=== PATIENT | female | born 1985 | race American Indian/Alaskan Native ===

== ENCOUNTER 2020-11-27 11:00 | Inpatient (IN) | payer OTHER, MEDICAID ==
[2020-11-27] MEDS ORDERED: D5W/LACTATED RINGERS 1,000 ML IV SCH (14:00)
[2020-11-27] MEDS ORDERED: SODIUM CHLORIDE 0.9% 1000 ML 1,000 ML IV ONE (14:30)
--- NOTE | 2020-11-27 15:15 | History and Physical Report ---
History of Present Illness Date of examination: 11/27/20 Date of admission: 11/27/20 11:12 Chief complaint: nausea and vomiting History of present illness: 35y/o @ 13+5 weeks presents for readmission secondary to hyperemesis. The patient was recently admitted and had placement of a PICC line however she had to leave [place] secondary to childcare concerns. She represents with the same complaint of nausea and vomiting. 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), D&C Social history: no significant social history - Obstetrical History Expected Date of Delivery: 05/30/21 Actual Gestation: 13 Week(s) 5 Day(s) : 8 Para: 4 Hx # Term Pregnancies: 3 Number of Pregnancies: 1 Spontaneous Abortions: 2 Induced : 1 Number of Living Children: 4 Medications and Allergies Allergies Allergy/AdvReac Type Severity Reaction Status Date / Time metoclopramide HCl Allergy Anaphylaxis Verified 08/30/15 17:51 [From [facility]] Home Medications Medication Instructions Recorded Confirmed Last Taken Type Ferrous Sulfate [Feosol 325 MG tab] 325 mg PO BID #30 tablet 06/20/16 11/25/20 Unknown Rx oxyCODONE /ACETAMINOPHEN [Percocet 2 tab PO Q6HR PRN #30 tablet 06/20/16 11/25/20 Unknown Rx 5/325] Active Meds: Active Medications Sodium Chloride (Nacl 0.9% 1000 Ml) 1,000 mls @ 999 mls/hr IV BOLUS ONE Stop: 11/27/20 15:30 Last Admin: 11/27/20 14:53 Dose: 999 mls/hr Documented by: Dextrose/Lactated Ringer's ([email or web address]) 1,000 mls @ 150 mls/hr IV DIRECT MARTHA Review of Systems Gastrointestinal: nausea, vomiting - Physical Exam Breasts: Positive: deferred Cardiovascular: Regular rate Lungs: Positive: Clear to auscultation Abdomen: Positive: normal appearance Results All other labs normal. Assessment and Plan - Patient Problems (1) Hyperemesis affecting , antepartum Current Visit: No Status: Acute Plan to address problem: admit for anti-emetic therapy and PPN (2) Hyperemesis arising during Current Visit: No Status: Acute
[2020-11-27] MEDS: ONDANSETRON 4 MG/2 ML INJ IV PRN ×2 (15:54→22:24)
[2020-11-27] MEDS: PROMETHAZINE 25 MG RECT SUPP PR SCH ×2 (15:54→22:24)
[2020-11-27] MEDS ORDERED: METOCLOPRAMIDE 10 MG/2 ML INJ IV SCH (16:00)
[2020-11-27] MEDS ORDERED: MULTIPLE VITAMIN INJ, ADULT 10 ML in D5W/LACTATED RINGERS 1,000 ML IV ONE (17:00)
[2020-11-27 18:12] LABS: Blood Urea Nitrogen 7 mg/dL (7-17); Calcium 7.6 mg/dL (8.4-10.2); Hemolysis Index 2
[2020-11-27 18:28] LABS: BUN/Creatinine Ratio 14
[2020-11-27] MEDS ORDERED: TOTAL PARENTERAL NUTRITION 3,000 ML IV SCH (20:00)
[2020-11-27] MEDS ORDERED: FAT EMULSIONS 20% 250 ML IV SCH (20:00)
[2020-11-27] MEDS: D5W/LACTATED RINGERS 1,000 ML IV SCH (22:29)
[2020-11-28] MEDS: ONDANSETRON 4 MG/2 ML INJ IV PRN ×3 (04:47→17:54)
[2020-11-28] MEDS: D5W/LACTATED RINGERS 1,000 ML IV SCH ×3 (04:47→18:43)
[2020-11-28] MEDS: PROMETHAZINE 25 MG RECT SUPP PR SCH ×4 (04:47→21:17)
--- NOTE | 2020-11-28 07:00 | Progress Note ---
Assessment and Plan - Patient Problems (1) Hyperemesis affecting , antepartum Current Visit: No Status: Acute Plan to address problem: Advance diet as tolerated Initiate PPN (2) Hyperemesis arising during Current Visit: No Status: Acute Subjective - Subjective Date of service: 11/28/20 Interval history: 35y/o @ 13+6 weeks presents for readmission secondary to hyperemesis. The patient states she has not had vomiting for 5 days. The patient currently has a PICC line in place and was scheduled to undergo use of PPN. will attempt to advance diet as tolerated Patient reports: no new complaints Objective - Vital Signs Vital Signs: Vital Signs - 12hr 11/27/20 11/28/20 11/28/20 20:33 00:00 05:20 Temperature 98.4 F 98.6 F 98.8 F Pulse Rate 91 H 74 67 Respiratory 18 18 16 Rate Blood Pressure 113/78 Blood Pressure 114/78 103/79 [Left] O2 Sat by Pulse 97 Oximetry - Labs Labs: Abnormal Labs 11/27/20 11/27/20 17:33 17:33 Sodium 132 L Potassium 3.4 L Creatinine 0.5 L Calcium 7.6 L Magnesium 1.30 L Laboratory Results - last 24 hr 11/27/20 11/27/20 17:33 17:33 Sodium 132 L Potassium 3.4 L Chloride 99.7 Carbon Dioxide 22 Anion Gap 14 BUN 7 Creatinine 0.5 L Estimated GFR > 60 BUN/Creatinine Ratio 14 Glucose 91 Calcium 7.6 L Phosphorus 2.90 Magnesium 1.30 L
[2020-11-28] MEDS: PRENATAL VIT27-FE FUMARATE-FOLIC ACID VIT TAB PO SCH (10:10)
[2020-11-28 10:40] LABS: BUN/Creatinine Ratio 7; Blood Urea Nitrogen 2 mg/dL (7-17); Calcium 6.4 mg/dL (8.4-10.2); Hemolysis Index 1
[2020-11-28] MEDS ORDERED: POTASSIUM CHLORIDE 20 MEQ 20 MEQ/100 ML BAG IV SCH (11:00)
[2020-11-28] MEDS: POTASSIUM CHLORIDE 10 MEQ 10 MEQ/100 ML BAG IV SCH ×4 (12:35→16:59)
[2020-11-28] MEDS ORDERED: FAT EMULSIONS 20% 250 ML IV SCH (20:00)
[2020-11-28] MEDS ORDERED: TOTAL PARENTERAL NUTRITION 2,016 ML IV SCH (20:00)
[2020-11-29] MEDS: ONDANSETRON 4 MG/2 ML INJ IV PRN ×3 (00:30→20:27)
[2020-11-29] MEDS: PROMETHAZINE 25 MG RECT SUPP PR SCH ×4 (04:45→22:00)
[2020-11-29 05:32] LABS: Blood Urea Nitrogen 4 mg/dL (7-17); Calcium 8.1 mg/dL (8.4-10.2); Hemolysis Index 1
[2020-11-29 05:45] LABS: BUN/Creatinine Ratio 10
[2020-11-29 12:16] LABS: Alanine Aminotransferase 252 units/L (7-56); Albumin 2.5 g/dL (3.9-5); Blood Urea Nitrogen 5 mg/dL (7-17); Calcium 6.6 mg/dL (8.4-10.2); Hemolysis Index 6
[2020-11-29 12:42] LABS: BUN/Creatinine Ratio 17
[2020-11-29] MEDS: PRENATAL VIT27-FE FUMARATE-FOLIC ACID VIT TAB PO SCH (13:46)
--- NOTE | 2020-11-29 15:58 | Progress Note ---
Assessment and Plan - Patient Problems (1) Hyperemesis affecting , antepartum Current Visit: No Status: Acute Plan to address problem: -continue feeds as ordered -labs reviewed, continue replacement prn. (2) Hypokalemia Current Visit: No Status: Acute (3) Hypomagnesemia Current Visit: No Status: Acute (4) Current Visit: No Status: Acute Qualifiers: Weeks of gestation: 14 weeks Qualified Code(s): Z3A.14 - 14 weeks gestation of Subjective - Subjective Date of service: 11/29/20 Principal diagnosis: Hyperemesis Interval history: 35y/o @ 14 weeks presents for readmission secondary to hyperemesis. Reports one episode of vomiting overnight. Tolerating feeds. States today has been "a bad day". Denies acute events. Nausea overall controlled with antiemetics. No new complaints. Patient reports: no new complaints Objective - Vital Signs Vital Signs: Vital Signs - 12hr 11/29/20 11/29/20 11/29/20 04:44 07:45 12:43 Temperature 98.7 F 98.4 F 98.9 F Pulse Rate 70 104 H 97 H Respiratory 18 18 18 Rate Blood Pressure 122/78 113/76 Blood Pressure 116/62 [Left] O2 Sat by Pulse 97 97 Oximetry - Exam Breasts: deferred Cardiovascular: Regular rate Lungs: Clear to auscultation Abdomen: Absent: distention, tenderness, guarding - Labs Labs: Abnormal Labs 11/27/20 11/27/20 11/28/20 17:33 17:33 Unknown Sodium 132 L Potassium 3.4 L 2.7 L* D Chloride 108.7 H Carbon Dioxide BUN 2 L Creatinine 0.5 L 0.3 L Glucose Calcium 7.6 L 6.4 L D Phosphorus 2.00 L D Magnesium 1.30 L 1.00 L AST ALT Total Protein Albumin 11/29/20 11/29/20 04:00 11:00 Sodium 133 L Potassium 3.3 L Chloride 109.0 H Carbon Dioxide 21 L BUN 4 L 5 L Creatinine 0.4 L 0.3 L Glucose 104 H Calcium 8.1 L D 6.6 L D Phosphorus Magnesium 1.40 L AST 43 H ALT 252 H Total Protein 4.5 L Albumin 2.5 L Laboratory Results - last 24 hr 11/28/20 11/29/20 11/29/20 18:36 00:24 04:00 Sodium 133 L Potassium 3.9 D Chloride 102.2 Carbon Dioxide 23 Anion Gap 12 BUN 4 L Creatinine 0.4 L Estimated GFR > 60 BUN/Creatinine Ratio 10 Glucose 104 H POC Glucose 90 105 Calcium 8.1 L D Phosphorus 3.70 D Magnesium 1.40 L Total Bilirubin AST ALT Alkaline Phosphatase Total Protein Albumin Albumin/Globulin Ratio Triglycerides 11/29/20 11/29/20 11/29/20 06:27 11:00 11:00 Sodium 137 Potassium 3.3 L Chloride 109.0 H Carbon Dioxide 21 L Anion Gap 10 BUN 5 L Creatinine 0.3 L Estimated GFR > 60 BUN/Creatinine Ratio 17 Glucose 78 POC Glucose 104 Calcium 6.6 L D Phosphorus Magnesium Total Bilirubin 0.60 AST 43 H ALT 252 H Alkaline Phosphatase 37 Total Protein 4.5 L Albumin 2.5 L Albumin/Globulin Ratio 1.3 Triglycerides 116 11/29/20 12:37 Sodium Potassium Chloride Carbon Dioxide Anion Gap BUN Creatinine Estimated GFR BUN/Creatinine Ratio Glucose POC Glucose 89 Calcium Phosphorus Magnesium Total Bilirubin AST ALT Alkaline Phosphatase Total Protein Albumin Albumin/Globulin Ratio Triglycerides
[2020-11-29] MEDS: POTASSIUM CHLORIDE 10 MEQ 10 MEQ/100 ML BAG IV SCH ×2 (16:49→18:11)
[2020-11-29] MEDS ORDERED: TOTAL PARENTERAL NUTRITION 2,016 ML IV SCH (20:00)
[2020-11-30] MEDS: ONDANSETRON 4 MG/2 ML INJ IV PRN ×3 (05:21→18:36)
[2020-11-30 05:51] LABS: Blood Urea Nitrogen 8 mg/dL (7-17); Calcium 8.1 mg/dL (8.4-10.2); Hemolysis Index 6
[2020-11-30] MEDS: PROMETHAZINE 25 MG RECT SUPP PR SCH ×3 (06:00→21:40)
[2020-11-30 06:03] LABS: BUN/Creatinine Ratio 20
--- NOTE | 2020-11-30 08:34 | Progress Note ---
Assessment and Plan A: IUP at 14w1d Hyperemesis on PPN via PICC line P: Consult case management for home health service for TPN because [facility] does not manage TPN. Subjective - Subjective Date of service: 11/30/20 Principal diagnosis: Hyperemesis Interval history: Pt feels well this morning. No emesis overnight. Tolerating TPN. No obstetric complaints. Patient reports: no new complaints, no loss of fluid, no vaginal bleeding Objective - Vital Signs Vital Signs: Vital Signs - 12hr 11/30/20 11/30/20 02:02 05:49 Temperature 98.2 F 98.2 F Pulse Rate 98 H 92 H Respiratory 18 18 Rate Blood Pressure 95/50 94/55 O2 Sat by Pulse 98 95 Oximetry - Exam Breasts: deferred - Labs Labs: Abnormal Labs 11/27/20 11/27/20 11/28/20 17:33 17:33 Unknown Sodium 132 L Potassium 3.4 L 2.7 L* D Chloride 108.7 H Carbon Dioxide BUN 2 L Creatinine 0.5 L 0.3 L Glucose Calcium 7.6 L 6.4 L D Phosphorus 2.00 L D Magnesium 1.30 L 1.00 L AST ALT Total Protein Albumin 11/29/20 11/29/20 11/30/20 04:00 11:00 04:00 Sodium 133 L 134 L Potassium 3.3 L Chloride 109.0 H Carbon Dioxide 21 L BUN 4 L 5 L Creatinine 0.4 L 0.3 L 0.4 L Glucose 104 H Calcium 8.1 L D 6.6 L D 8.1 L D Phosphorus Magnesium 1.40 L AST 43 H ALT 252 H Total Protein 4.5 L Albumin 2.5 L Laboratory Results - last 24 hr 11/29/20 11/29/20 11/29/20 11:00 11:00 12:37 Sodium 137 Potassium 3.3 L Chloride 109.0 H Carbon Dioxide 21 L Anion Gap 10 BUN 5 L Creatinine 0.3 L Estimated GFR > 60 BUN/Creatinine Ratio 17 Glucose 78 POC Glucose 89 Calcium 6.6 L D Phosphorus Magnesium Total Bilirubin 0.60 AST 43 H ALT 252 H Alkaline Phosphatase 37 Total Protein 4.5 L Albumin 2.5 L Albumin/Globulin Ratio 1.3 Triglycerides 116 11/29/20 11/30/20 11/30/20 17:59 00:07 04:00 Sodium 134 L Potassium 4.4 D Chloride 102.6 Carbon Dioxide 22 Anion Gap 14 BUN 8 Creatinine 0.4 L Estimated GFR > 60 BUN/Creatinine Ratio 20 Glucose 99 POC Glucose 80 71 Calcium 8.1 L D Phosphorus 3.90 Magnesium 1.90 Total Bilirubin AST ALT Alkaline Phosphatase Total Protein Albumin Albumin/Globulin Ratio Triglycerides
[2020-11-30] MEDS ORDERED: TOTAL PARENTERAL NUTRITION 2,016 ML IV SCH (20:00)
[2020-12-01] MEDS: ONDANSETRON 4 MG/2 ML INJ IV PRN ×3 (00:43→15:31)
[2020-12-01] MEDS: PROMETHAZINE 25 MG RECT SUPP PR SCH ×3 (04:00→17:50)
[2020-12-01 04:39] LABS: Blood Urea Nitrogen 11 mg/dL (7-17); Calcium 8.7 mg/dL (8.4-10.2); Hemolysis Index 2
[2020-12-01 04:42] LABS: BUN/Creatinine Ratio 22
--- NOTE | 2020-12-01 08:00 | Progress Note ---
Assessment and Plan - Patient Problems (1) Hyperemesis affecting , antepartum Current Visit: No Status: Acute Plan to address problem: discharge home once PPN is established for home care (2) Hyperemesis arising during Current Visit: No Status: Acute Subjective - Subjective Date of service: 12/01/20 Principal diagnosis: Hyperemesis Interval history: Patient is still taking minimal oral intake. She is receiving PPN and tolerating without difficulty. Case management has been involved with arranging home health care. Patient reports: no new complaints, no loss of fluid, no vaginal bleeding Objective - Vital Signs Vital Signs: Vital Signs - 12hr 11/30/20 12/01/20 12/01/20 20:56 00:28 05:43 Temperature 98.2 F 98.1 F 99.3 F Pulse Rate 106 H 98 H 101 H Respiratory 20 18 20 Rate Blood Pressure 106/65 105/68 99/57 O2 Sat by Pulse 98 98 98 Oximetry - Labs Labs: Abnormal Labs 11/27/20 11/27/20 11/28/20 17:33 17:33 Unknown Sodium 132 L Potassium 3.4 L 2.7 L* D Chloride 108.7 H Carbon Dioxide BUN 2 L Creatinine 0.5 L 0.3 L Glucose Calcium 7.6 L 6.4 L D Phosphorus 2.00 L D Magnesium 1.30 L 1.00 L AST ALT Total Protein Albumin 11/29/20 11/29/20 11/30/20 04:00 11:00 04:00 Sodium 133 L 134 L Potassium 3.3 L Chloride 109.0 H Carbon Dioxide 21 L BUN 4 L 5 L Creatinine 0.4 L 0.3 L 0.4 L Glucose 104 H Calcium 8.1 L D 6.6 L D 8.1 L D Phosphorus Magnesium 1.40 L AST 43 H ALT 252 H Total Protein 4.5 L Albumin 2.5 L 12/01/20 04:00 Sodium 134 L Potassium Chloride Carbon Dioxide BUN Creatinine 0.5 L Glucose Calcium Phosphorus Magnesium AST ALT Total Protein Albumin Laboratory Results - last 24 hr 11/30/20 11/30/20 12/01/20 11:31 18:28 00:29 Sodium Potassium Chloride Carbon Dioxide Anion Gap BUN Creatinine Estimated GFR BUN/Creatinine Ratio Glucose POC Glucose 81 98 91 Calcium Phosphorus Magnesium 12/01/20 12/01/20 04:00 05:46 Sodium 134 L Potassium 4.3 Chloride 99.1 Carbon Dioxide 24 Anion Gap 15 BUN 11 Creatinine 0.5 L Estimated GFR > 60 BUN/Creatinine Ratio 22 Glucose 98 POC Glucose 94 Calcium 8.7 Phosphorus 4.50 Magnesium 1.80
--- NOTE | 2020-12-01 08:05 | Discharge Summary ---
Providers - Providers Date of Admission: 11/27/20 11:12 Date of discharge: 12/01/20 Attending physician: ROBBY MATHEWS 11/27/20 15:10 Consult to Dietitian/Nutrition [CONS] Routine Physician Instructions: Reason For Exam: manage Tpn/ppn Reason for Consult: hyper grav Reason for Consult: Malnutrition Primary care physician: WILBER ROMO Hospitalization Reason for admission: other (hyperemesis) Procedure: other (antiemetics and IV hydration) Discharge diagnosis: other (Hyperemesis) Hospital course: Patient admitted for hyperemesis and weight loss. Complicated by hypokalemia that was corrected. PICC line placed with infusion of PPN Condition at discharge: Good Disposition: [id number] TO HOME OR SELFCARE - Discharge Diagnoses (1) Hyperemesis affecting , antepartum Status: Acute (2) Hyperemesis arising during Status: Acute Plan - Discharge Medications Prescriptions: Promethazine [Phenergan] 25 mg NV Q8HR PRN #15 tab PRN Reason: Nausea Ondansetron HCl [Zofran] 4 mg PO Q8HR PRN #20 tablet PRN Reason: Nausea - Provider Discharge Summary Activity: no heavy lifting 4 weeks, no strenuous exercise Diet: routine Instructions: routine Additional instructions: [] Smoking cessation referral if applicable(refer to patient education folder for contact #) [] Refer to [facility] Booklet Call your doctor immediately for: * Fever > 100.5 * Heavy vaginal bleeding ( >1 pad per hour) * Severe persistent headache * Shortness of breath * Reddened, hot, painful area to leg or breast * schedule OB appt in 1-2 weeks - Follow up plan
[2020-12-01 17:23] VITALS: BP 104/63
== END 2020-12-01 18:30 | disposition home health service (06) | DRG 833 ==
LOC: 3A 11:00 → UNDOADMIN 11:00 → OB 11:12
PROVIDERS: ADMIT Obstetrics & Gynecology; ATTEND Obstetrics & Gynecology
DX: O21.1 Hyperemesis gravidarum with metabolic disturbance (principal); O26.891 Other specified pregnancy related conditions, first trimester; E83.42 Hypomagnesemia; Z3A.13 13 weeks gestation of pregnancy; Z88.8 Allergy status to other drugs, medicaments and biological substances
CPT/HCPCS: 36415; 80048; 80053; 82962; 83735; 84100; 84478; G0378; J2405; J3480; J7030; J7121

== ENCOUNTER 2020-12-14 15:08 | Emergency (ER) | payer OTHER, MEDICAID ==
[2020-12-14 15:17] VITALS: BP 128/82
--- NOTE | 2020-12-14 15:20 | Emergency Department Report ---
<MAIA DIAZ - Last Filed: 12/14/20 15:23> ED Recheck HPI - General Chief Complaint: Medical Clearance Stated Complaint: CAN'T FIND PICC LINE Time Seen by Provider: 12/14/20 15:19 Source: patient Mode of arrival: Wheelchair Limitations: No Limitations - History of Present Illness Initial Comments: Patient is a 35-year-old -[place] gravid female that comes to the emergency room because her PICC line is occluded. She states that home health attempted to flush it yesterday with Cathflo but was unsuccessful. The patient tried today and was unsuccessful. Patient is being treated with TPN and antiemetics for her hyperemesis gravidarum -: Gradual, days(s) Returns Today for: other - Related Data Previous Rx's Medication Instructions Recorded Last Taken Type Ferrous Sulfate [Feosol 325 MG tab] 325 mg PO BID #30 tablet 06/20/16 Unknown Rx oxyCODONE /ACETAMINOPHEN [Percocet 2 tab PO Q6HR PRN #30 tablet 06/20/16 Unknown Rx 5/325] Ondansetron HCl [Zofran] 4 mg PO Q8HR PRN #20 tablet 12/01/20 Unknown Rx Promethazine [Phenergan] 25 mg [place] Q8HR PRN #15 tab 12/01/20 Unknown Rx Allergies Allergy/AdvReac Type Severity Reaction Status Date / Time metoclopramide HCl Allergy Anaphylaxis Verified 12/14/20 15:11 [From [facility]] ED Review of Systems Comment: All other systems reviewed and negative ED Past Medical Hx - Past Medical History Previous Medical History?: Yes Hx Hypertension: No Hx Congestive Heart Failure: No Hx Diabetes: No Hx Deep Vein Thrombosis: No Hx Liver Disease: (cholelithiasis) Hx Renal Disease: No Hx Sickle Cell Disease: No Hx Seizures: No Hx Asthma: No Hx COPD: No Hx Dementia: No Hx HIV: No Additional medical history: UTI, Vaginal delivery x 3. gallstones - Surgical History Past Surgical History?: No Hx Open Heart Surgery: No Hx Pacemaker: No Hx Internal Defibrillator: No Hx Cholecystectomy: No Hx Appendectomy: No Hx Breast Surgery: No - Family History Family history: no significant - Social History Smoking Status: Never Smoker Substance Use Type: None - Medications Home Medications: Home Medications Medication Instructions Recorded Confirmed Last Taken Type Ferrous Sulfate [Feosol 325 MG tab] 325 mg PO BID #30 tablet 06/20/16 11/29/20 U nknown Rx oxyCODONE /ACETAMINOPHEN [Percocet 2 tab PO Q6HR PRN #30 tablet 06/20/16 11/29/20 Unknown Rx 5/325] Ondansetron HCl [Zofran] 4 mg PO Q8HR PRN #20 tablet 12/01/20 Unknown Rx Promethazine [Phenergan] 25 mg NJ Q8HR PRN #15 tab 12/01/20 Unknown Rx ED Physical Exam - General Limitations: No Limitations General appearance: alert, in no apparent distress - Head Head exam: Present: atraumatic, normocephalic - Eye Eye exam: Present: normal appearance - ENT ENT exam: Present: mucous membranes moist - Neck Neck exam: Present: normal inspection - Respiratory Respiratory exam: Present: normal lung sounds bilaterally. Absent: respiratory distress - Cardiovascular Cardiovascular Exam: Present: regular rate, normal rhythm, other. Absent: systolic murmur, diastolic murmur, rubs, gallop - GI/Abdominal GI/Abdominal exam: Present: soft, normal bowel sounds - Extremities Exam Extremities exam: Present: normal inspection - Back Exam Back exam: Present: normal inspection - Neurological Exam Neurological exam: Present: alert, oriented X3 - Psychiatric Psychiatric exam: Present: normal affect, normal mood - Skin Skin exam: Present: warm, dry, intact, normal color. Absent: rash ED Recheck MDM - Core Measures AMI Core Measures Followed: (100) Measure Exclusions: not indicated - Medical Decision Making Patient has a 2 lumen PICC line in her right arm. I have flushed both ports with normal saline without difficulty. There is no resistance. The site is clean dry and intact. There is no redness swelling or pain on palpation. Patient being discharged home with her usual plan of care. Vital Signs 12/14/20 15:16 Temperature 98 F Pulse Rate 119 H Respiratory 18 Rate Blood Pressure 128/82 [Right] O2 Sat by Pulse 99 Oximetry ED Disposition Clinical Impression: PIC line (peripherally inserted central catheter) flush, General medical exam, History of hyperemesis gravidarum Disposition: TO HOME OR SELFCARE Is pt being admited?: No Does the pt Need Aspirin: No Condition: Stable Time of Disposition: 15:20 <LOLI RANDHAWA - Last Filed: 12/14/20 15:37> ED Review of Systems ROS: Stated complaint: CAN'T FIND PICC LINE Other details as noted in HPI ED Course Vital Signs 12/14/20 15:16 Temperature 98 F Pulse Rate 119 H Respiratory 18 Rate Blood Pressure 128/82 [Right] O2 Sat by Pulse 99 Oximetry Critical care attestation.: If time is entered above; I have spent that time in minutes in the direct care of this critically ill patient, excluding procedure time. ED Disposition Is pt being admited?: No Does the pt Need Aspirin: No
== END 2020-12-14 15:20 | disposition home or self-care (01) ==
LOC: ED 15:08
DX: O21.0 Mild hyperemesis gravidarum (principal); Z45.2 Encounter for adjustment and management of vascular access device; Z3A.00 Weeks of gestation of pregnancy not specified; Z00.00 Encounter for general adult medical examination without abnormal findings; Z79.899 Other long term (current) drug therapy; Z88.8 Allergy status to other drugs, medicaments and biological substances
CPT/HCPCS: 99281; 99282

== ENCOUNTER 2021-04-24 09:37 | Outpatient (CLI) | payer OTHER, MEDICAID ==
[2021-04-24 11:13] VITALS: BP 103/61
[2021-04-24 11:47] LABS: Bacteria,Urine 1+ /HPF (Negative); Bilirubin,Urine NEG (Negative); Blood,Urine LG (Negative); Color,Urine Amber (Yellow); Mucus,Urine 3+ /HPF
== END 2021-04-24 12:35 | disposition home or self-care (01) ==
LOC: TRG 09:37 → APU 09:38 → TRG 12:35
PROVIDERS: ATTEND Obstetrics & Gynecology
DX: O46.93 Antepartum hemorrhage, unspecified, third trimester (principal); Z3A.34 34 weeks gestation of pregnancy
CPT/HCPCS: 59025; 81001; 96360; J7120

== ENCOUNTER 2021-05-08 17:12 | Inpatient (IN) | payer OTHER, MEDICAID ==
[2021-05-08] MEDS ORDERED: METHYLERGONOVINE MALEATE 0.2 MG/ML VIAL IM PRN (19:53)
[2021-05-08] MEDS ORDERED: BUTORPHANOL 2 MG/1 ML INJ IV PRN (19:53)
[2021-05-08] MEDS ORDERED: CARBOPROST TROMETHAMINE 250 MCG/1 ML INJ IM PRN (19:53)
[2021-05-08] MEDS ORDERED: TERBUTALINE 1 MG/1 ML INJ SUB-Q PRN (19:53)
[2021-05-08] MEDS ORDERED: LOPERAMIDE 2 MG CAP PO PRN (19:53)
[2021-05-08] MEDS ORDERED: ePHEDrine SULFATE 50 MG/1 ML INJ IV PRN (19:53)
[2021-05-08] MEDS ORDERED: OXYTOCIN 10 UNIT/1 ML INJ IM PRN (19:53)
[2021-05-08] MEDS ORDERED: fentaNYL 100 MCG/2 ML INJ IV PRN (19:53)
[2021-05-08] MEDS ORDERED: miSOPROStol 200 MCG TAB PR PRN (19:53)
[2021-05-08] MEDS ORDERED: MINERAL OIL 30 ML ORAL LIQD PO PRN (19:53)
[2021-05-08] MEDS ORDERED: OXYTOCIN DRIP 30 UNITS/500 ML BAG IV SCH ×2 (20:00)
--- NOTE | 2021-05-08 20:14 | History and Physical Report ---
History of Present Illness Date of examination: 05/08/21 Date of admission: 05/08/21 19:53 Chief complaint: Spontaneous rupture membranes History of present illness: 36-year-old -1-2-4 at 38 with 6 weeks of present with spontaneous rupture membranes and regular uterine contractions. The patient initiated care on the first trimester. Her course is complicated by hyperemesis gravidarum for which the patient was on TPN therapy. Her was also complicated by intrauterine growth restriction that resolved and a history of genital herpes for which the patient underwent suppression therapy at 35 weeks. She currently denies any active prodrome. Her GBS status is negative. 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 Social history: single - Obstetrical History Expected Date of Delivery: 05/30/21 Actual Gestation: 36 Week(s) 6 Day(s) : 7 Para: 4 Hx # Term Pregnancies: 3 Number of Pregnancies: 1 Spontaneous Abortions: 0 Induced : 2 Number of Living Children: 4 Medications and Allergies Allergies Allergy/AdvReac Type Severity Reaction Status Date / Time metoclopramide HCl Allergy Anaphylaxis Verified 12/14/20 15:11 [[facility] Home Medications Medication Instructions Recorded Confirmed Last Taken Type Ferrous Sulfate [Feosol 325 MG tab] 325 mg PO BID #30 tablet 06/20/16 11/29/20 Unknown Rx oxyCODONE /ACETAMINOPHEN [Percocet 2 tab PO Q6HR PRN #30 tablet 06/20/16 11/29/20 Unknown Rx 5/325] Ondansetron HCl [Zofran] 4 mg PO Q8HR PRN #20 tablet 12/01/20 Unknown Rx Promethazine [Phenergan] 25 mg [place] Q8HR PRN #15 tab 12/01/20 Unknown Rx Active Meds: Active Medications Butorphanol Tartrate (Butorphanol 2 Mg/1 Ml Inj) 2 mg IV Q2H PRN PRN Reason: Pain , Severe (7-10) Carboprost Tromethamine (Carboprost Tromethamine 250 Mcg/1 Ml Inj) 250 mcg IM ONCE PRN PRN Reason: Uterine Bleeding Ephedrine Sulfate (Ephedrine Sulfate 50 Mg/1 Ml Inj) 10 mg IV Q2M PRN PRN Reason: Hypotension Fentanyl (Fentanyl 100 Mcg/2 Ml Inj) 100 mcg IV Q2H PRN PRN Reason: Pain,Severe (7-10) LABOR PAIN Oxytocin/Sodium Chloride (Pitocin/Ns 30 Unit/500ml) 30 units in 500 mls @ 2 mls/hr IV TITR MARTHA; Protocol Lactated Ringer's (Lactated Ringers) 1,000 mls @ 125 mls/hr IV DIRECT MARTHA Oxytocin/Sodium Chloride (Pitocin/Ns 30 Unit/500ml) 30 units in 500 mls @ 40 mls/hr IV TITR MARTHA; Protocol Ampicillin Sodium (Ampicillin/Ns 2 Gm/100 Ml) 2 gm in 100 mls @ 100 mls/hr IV ONCE ONE; Protocol Stop: 05/08/21 20:52 Ampicillin Sodium (Ampicillin/Ns 1 Gm/50 Ml) 1 gm in 50 mls @ 100 mls/hr IV Q4H MARTHA; Protocol Stop: 05/09/21 23:59 Lidocaine (Lidocaine (2%) 20 Mg/1 Ml Vial 20 Ml Mdv) 20 ml INFILTRATI ONCE ONE Stop: 05/08/21 19:54 Loperamide HCl (Loperamide 2 Mg Cap) 2 mg PO ONCE PRN PRN Reason: give with Hemabate Methylergonovine Maleate (Methylergonovine Maleate 0.2 Mg/Ml Vial) 0.2 mg IM ONCE PRN PRN Reason: Uterine Bleeding Mineral Oil (Mineral Oil 30 Ml Oral Liqd) 30 ml PO QHS PRN PRN Reason: Constipation Misoprostol (Misoprostol 200 Mcg Tab) 800 mcg MA ONCE PRN PRN Reason: Uterine Bleeding Oxytocin (Oxytocin 10 Unit/1 Ml Inj) 10 unit IM ONCE PRN PRN Reason: Uterine Bleeding Terbutaline Sulfate (Terbutaline 1 Mg/1 Ml Inj) 0.25 mg SUB-Q ONCE PRN PRN Reason: Hyperstimulation/Hypertonicity Review of Systems All systems: negative Genitourinary: leakage of fluid, contractions - Vital Signs Vital signs: Vital Signs Pulse BP 92 H 125/78 05/08/21 18:12 05/08/21 18:12 Temp Pulse Resp BP Pulse Ox 99.1 F 97 H 20 125/78 100 05/08/21 18:26 05/08/21 19:28 05/08/21 18:26 05/08/21 18:26 05/08/21 19:28 - Physical Exam Breasts: Positive: deferred Cardiovascular: Regular rate Lungs: Positive: Clear to auscultation Abdomen: Positive: normal appearance Results All other labs normal. Assessment and Plan - Patient Problems (1) premature rupture of membranes Current Visit: Yes Status: Acute Plan to address problem: Patient admitted to labor and delivery Anticipate vaginal delivery
[2021-05-08 20:35] LABS: Hematocrit 24.6 % (30.3-42.9); Hemoglobin 8.4 gm/dl (10.1-14.3); Mean Corpuscular HGB Conc 34 % (30-34); Mean Corpuscular Volume 91 fl (79-97); Platelet Count 166 K/mm3 (140-440); Red Blood Count 2.71 M/mm3 (3.65-5.03)
[2021-05-08] MEDS ORDERED: AMPICILLIN/NS 2 GM/100 ML 2 GM/100 ML BAG IV ONE (20:53)
[2021-05-08] MEDS ORDERED: LIDOCAINE (2%) 20 MG/1 ML VIAL 20 ML MDV INFILTRATI ONE (20:53)
[2021-05-08] MEDS ORDERED: LACTATED RINGERS 1,000 ML IV SCH (21:00)
--- NOTE | 2021-05-08 21:54 | Procedure Note ---
OB Delivery Note - Delivery Date of Delivery: 05/08/21 Surgeon: ROBBY MATHEWS Estimated blood loss: 100cc - Vaginal Delivery presentation: vertex Delivery position: OP Intrapartum events: labor-<37 weeks Delivery monitor: external FHT, external uterine Route of delivery: Delivery placenta: spontaneous Delivery cord: 3 umbilical vessels Episiotomy: none Delivery laceration: none Anesthesia: none Delivery comments: The patient progressed to complete complete +1 and pushed to deliver a live-born female with Apgars of 8 and 9 weight 5 pounds 15 ounces in OP position. After delivery of the head the shoulders delivered without difficulty. The infant was bulb suction. Cord was clamped and cut x2 and the was placed on the warmer. The placenta delivered spontaneously intact with a three-vessel cord. Estimated blood loss of 100 mL no lacerations were noted. - Infant A at 1 minute: 8 at 5 minutes: 9 Gender: Female (Weight 5 pounds 15 ounces)
[2021-05-08] MEDS ORDERED: PROMETHAZINE 25 MG TAB PO PRN (21:55)
[2021-05-08] MEDS ORDERED: MAGNESIUM HYDROXIDE (MOM) ORAL LIQD UDC PO PRN (21:55)
[2021-05-08] MEDS ORDERED: HYDROcodone/ACETAMINOPHEN 5-325 MG TAB PO PRN (21:55)
[2021-05-08] MEDS ORDERED: diphenhydrAMINE 25 MG CAP PO PRN (21:55)
[2021-05-08] MEDS ORDERED: WITCH HAZEL/ GLYCERIN PAD TP PRN (21:55)
[2021-05-08] MEDS ORDERED: LANOLIN/ZINC/DIMETHICONE (LANSINOH) 7 GM TP PRN (21:55)
[2021-05-08] MEDS ORDERED: ACETAMINOPHEN 325 MG TAB PO PRN (21:55)
[2021-05-08] MEDS ORDERED: ONDANSETRON 4 MG/2 ML INJ IV PRN (21:55)
[2021-05-08] MEDS ORDERED: PROMETHAZINE 25 MG RECT SUPP PR PRN (21:55)
[2021-05-09] MEDS ORDERED: AMPICILLIN/NS 1 GM/50 ML 1 GM/50 ML BAG IV SCH (00:01)
[2021-05-09] MEDS: IBUPROFEN 600 MG TAB PO SCH ×4 (00:45→18:15)
--- NOTE | 2021-05-09 07:45 | Progress Note ---
Assessment and Plan - Patient Problems (1) Status post normal vaginal delivery Current Visit: Yes Status: Acute Plan to address problem: Continue routine PP orders Anticipate d/c in 24 - 48 hrs if stable (2) Hyperemesis arising during Current Visit: No Status: Acute Plan to address problem: Stable, reports more of a feeling of heartburn vs nausea Remove PICC line prior to d/c home (3) Heartburn Current Visit: Yes Status: Acute Plan to address problem: Pepcid 20mg po BID as tolerated Subjective - Subjective Date of service: 05/09/21 Principal diagnosis: S/P ; hyperemesis Interval history: 36-year-old -1-2-4 at 38 with 6 weeks of present with spontaneous rupture membranes and regular uterine contractions. The patient initiated care on the first trimester. Her course is complicated by hyperemesis gravidarum for which the patient was on TPN therapy. Her was also complicated by intrauterine growth restriction that resolved and a history of genital herpes for which the patient underwent suppression therapy at 35 weeks. Patient reports: appetite normal, voiding normally, pain well controlled, flatus, ambulating normally [place]: doing well, bottle feeding Objective - Vital Signs Latest vital signs: Vital Signs Temp Pulse Resp BP BP Pulse Ox 05/09/21 04:52 98.1 F 84 18 117/68 98 05/09/21 03:00 98.6 F 69 18 114/62 05/09/21 00:20 98.1 F 89 18 104/61 97 05/08/21 23:44 82 99 05/08/21 23:39 83 99 05/08/21 23:34 90 99 05/08/21 23:33 86 119/62 05/08/21 23:29 90 98 05/08/21 23:24 85 96 05/08/21 23:19 94 H 100 05/08/21 23:14 100 H 97 05/08/21 23:09 106 H 99 05/08/21 23:04 85 100 05/08/21 22:59 86 99 05/08/21 22:54 87 99 05/08/21 22:49 84 100 05/08/21 22:44 84 99 05/08/21 22:39 89 100 05/08/21 22:34 87 100 05/08/21 22:29 93 H 100 05/08/21 22:24 98 H 100 05/08/21 22:19 97 H 100 05/08/21 22:14 102 H 100 05/08/21 22:09 104 H 100 05/08/21 22:04 105 H 100 05/08/21 21:59 101 H 100 05/08/21 21:54 111 H 100 05/08/21 21:49 91 H 100 05/08/21 21:45 86 05/08/21 21:44 100 H 92 05/08/21 21:39 116 H 100 05/08/21 21:34 124 H 100 05/08/21 21:29 94 H 100 05/08/21 21:24 88 100 05/08/21 21:19 95 H 100 05/08/21 21:14 86 100 05/08/21 21:09 95 H 99 05/08/21 21:04 92 H 100 05/08/21 20:59 102 H 100 05/08/21 20:54 96 H 100 05/08/21 20:49 108 H 100 05/08/21 20:44 99 H 100 05/08/21 20:39 88 100 05/08/21 20:34 107 H 131/76 100 05/08/21 19:28 97 H 100 05/08/21 19:23 92 H 100 05/08/21 19:18 111 H 100 05/08/21 19:13 101 H 100 05/08/21 19:08 109 H 100 05/08/21 19:03 111 H 100 05/08/21 18:58 116 H 100 05/08/21 18:53 116 H 100 05/08/21 18:48 99 H 99 05/08/21 18:43 106 H 100 05/08/21 18:38 117 H 100 05/08/21 18:33 105 H 99 05/08/21 18:28 92 H 100 05/08/21 18:26 99.1 F 92 H 20 125/78 100 05/08/21 18:12 92 H 125/78 Intake and Output 05/08/21 05/08/21 05/09/21 15:59 23:59 07:59 Intake Total 600 Balance 600 Intake: Intake, Free Water 600 Other: Weight 72.121 kg Estimated Blood Loss 100 - Exam Breasts: Present: normal Cardiovascular: Present: Regular rate Lungs: Present: Normal air movement Abdomen: Present: soft Uterus: Present: firm Extremities: Present: normal Deep Tendon Reflex Grade: Normal +2 - Labs Labs: Abnormal lab results 05/08/21 Range/Units 18:25 RBC 2.71 L (3.65-5.03) M/mm3 Hgb 8.4 L (10.1-14.3) gm/dl Hct 24.6 L (30.3-42.9) %
[2021-05-09] MEDS ORDERED: IRON DEXTRAN COMPLEX 100 MG/2 ML INJ IM NR (09:00)
[2021-05-09] MEDS: FAMOTIDINE 20 MG TAB PO SCH (09:11)
[2021-05-09 11:56] LABS: Hematocrit 23.3 % (30.3-42.9); Hemoglobin 7.7 gm/dl (10.1-14.3)
[2021-05-10] MEDS: IBUPROFEN 600 MG TAB PO SCH ×2 (05:16→10:57)
--- NOTE | 2021-05-10 08:31 | Discharge Summary ---
Providers - Providers Date of Admission: 05/08/21 19:53 Date of discharge: 05/10/21 Attending physician: ROBBY MATHEWS Primary care physician: ROBBY MATHEWS Hospitalization Reason for admission: active labor Delivery: Episiotomy: none Laceration: none Other procedures: none complications: none Discharge diagnosis: delivery baby: female Hospital course: The patient progressed to complete complete +1 and pushed to deliver a live-born female with Apgars of 8 and 9 weight 5 pounds 15 ounces in OP position. After delivery of the head the shoulders delivered without difficulty. The was bulb suction. Cord was clamped and cut x2 and the was placed on the warmer. The placenta delivered spontaneously intact with a three-vessel cord. Estimated blood loss of 100 mL no lacerations were noted. Disposition: DC-01 TO HOME OR SELFCARE - Discharge Diagnoses (1) Status post normal vaginal delivery Status: Acute (2) Hyperemesis arising during Status: Acute Comment: Remove PICC line prior to discharge (3) Heartburn Status: Acute (4) Anemia Status: Acute Qualifiers: Anemia type: iron deficiency Comment: Asymptomatic Increase iron rich foods into diet Continue daily iron supplementation as directed Plan - Discharge Medications Prescriptions: Ibuprofen [Motrin 600 MG tab] 600 mg PO Q8H 7 Days #21 tablet Famotidine [Pepcid] 20 mg PO BID 14 Days #24 tablet - Provider Discharge Summary Activity: routine, no sex for 6 weeks, no heavy lifting 4 weeks, no strenuous exercise Diet: other (Iron rich diet) Instructions: routine Additional instructions: [] Smoking cessation referral if applicable(refer to patient education folder for contact #) [] Refer to [facility] Booklet Call your doctor immediately for: * Fever > 100.5 * Heavy vaginal bleeding ( >1 pad per hour) * Severe persistent headache * Shortness of breath * Reddened, hot, painful area to leg or breast - Follow up plan Follow up: ROBBY MATHEWS MD [Primary Care Provider] - 6 Weeks
[2021-05-10] MEDS: FAMOTIDINE 20 MG TAB PO SCH (11:00)
[2021-05-10 19:09] VITALS: BP 109/80
== END 2021-05-10 16:55 | disposition home or self-care (01) | DRG 805 ==
LOC: TRG 17:12 → APU 17:19 → LD 19:50 → TRG 19:53 → LD 19:53 → OB 05-09 02:59
PROVIDERS: ADMIT Obstetrics & Gynecology; ATTEND Obstetrics & Gynecology
PROC: 10E0XZZ Delivery of Products of Conception, External Approach (ICD-10-PCS; principal; 2021-05-08)
DX: O42.013 Preterm premature rupture of membranes, onset of labor within 24 hours of rupture, third trimester (principal); O60.14X0 Preterm labor third trimester with preterm delivery third trimester, not applicable or unspecified; Z37.0 Single live birth; O98.52 Other viral diseases complicating childbirth; D50.9 Iron deficiency anemia, unspecified; Z3A.36 36 weeks gestation of pregnancy; Z88.8 Allergy status to other drugs, medicaments and biological substances; B00.9 Herpesviral infection, unspecified; O90.81 Anemia of the puerperium; D64.9 Anemia, unspecified; O75.89 Other specified complications of labor and delivery; R12 Heartburn
CPT/HCPCS: 36415; 85014; 85018; 85027; 86592; 86850; 86900; 86901; G0378; J1750; J2405; J3010